=== PATIENT | male | born 1975 | race Native Hawaiian/Other Pacific Islander ===

== ENCOUNTER 2021-09-21 19:31 | Observation (INO) ==
[2021-09-21] MEDS ORDERED: ASPIRIN 325 MG TABLET PO STA (21:07)
[2021-09-21 21:13] LABS: Basophils % 0.4 % (0.0-0.8); Eosinophils % 0.2 % (0.00-10.9); Hematocrit 46.1 VOL% (42.0-52.0); Hemoglobin 15.3 GM/DL (14.0-18.0); Immature Granulocytes % 0.4 %; Immature Granulocytes Absolute 0.04 #; Lymphocytes % 21.1 % (21.2-54.2); Mean Corpuscular HGB Conc 33.2 GM/DL (32-36); Mean Corpuscular Volume 82.8 FL (87-102); Mean Platelet Volume 11.5 FL (9.6-12.0); Monocytes % 7.3 % (1.7-12.7); Neutrophils % 70.6 % (38.7-73.9); Platelet Count 323 T/CUMM (130-400); Red Blood Count 5.57 MC/CUMM (3.8-5.5); Red Cell Distribution Width 13.8 % (9.3-17.3); White Blood Count 9.5 T/CUMM (4-12)
[2021-09-21 21:26] LABS: Albumin 4.8 G/DL (3.4-5.0); Calcium 10.2 MG/DL (8.5-10.1); Osmolality,Calculated 275.7 MOS/KG (273-304); Potassium 3.7 MMOL/L (3.5-5.1); Total Protein 8.5 G/DL (6.4-8.2)
[2021-09-21] MEDS: NITROGLYCERIN SL 0.4 MG TABLET SL PRN ×2 (22:17→22:25)
[2021-09-21] MEDS ORDERED: ONDANSETRON 4 MG/2 ML VIAL IV PRN (22:46)
[2021-09-21] MEDS ORDERED: ZALEPLON 5 MG CAPSULE PO PRN (22:46)
[2021-09-21] MEDS ORDERED: MORPHINE 2 MG/1 ML SYRINGE IV PRN (22:46)
[2021-09-21] MEDS ORDERED: diphenhydrAMINE CAP 25 MG CAPSULE PO PRN (22:46)
[2021-09-21] MEDS ORDERED: NICOTINE 21 MG/24 HR PATCH TRANSDERM PRN (22:46)
[2021-09-21] MEDS ORDERED: guaiFENesin/DM ER 600-30 MG TABLET PO PRN (22:46)
[2021-09-21] MEDS ORDERED: ACETAMINOPHEN 325 MG TABLET PO PRN (22:46)
[2021-09-21] MEDS ORDERED: DEXTROSE 50% 25 GM/50 ML VIAL IV PRN (22:46)
[2021-09-21] MEDS ORDERED: GLUCAGON 1 MG VIAL IM PRN (22:46)
[2021-09-21] MEDS ORDERED: amLODIPine 5 MG TABLET PO STA (22:50)
[2021-09-21] MEDS ORDERED: DEXTROSE 5% NACL 0.9% 1,000 ML IV SCH (23:00)
[2021-09-22 01:42] LABS: Basophils % 0.4 % (0.0-0.8); Eosinophils % 0.4 % (0.00-10.9); Hematocrit 44.4 VOL% (42.0-52.0); Hemoglobin 15.3 GM/DL (14.0-18.0); Immature Granulocytes % 0.3 %; Immature Granulocytes Absolute 0.03 #; Lymphocytes # 2.5 10*3/uL (1.4-4.0); Lymphocytes % 26.2 % (21.2-54.2); Mean Corpuscular HGB Conc 34.5 GM/DL (32-36); Mean Corpuscular Volume 82.2 FL (87-102); Mean Platelet Volume 11.1 FL (9.6-12.0); Monocytes % 8.5 % (1.7-12.7); Neutrophils % 64.2 % (38.7-73.9); Platelet Count 298 T/CUMM (130-400); Red Cell Distribution Width 13.9 % (9.3-17.3); White Blood Count 9.7 T/CUMM (4-12)
[2021-09-22 02:03] LABS: Calcium 9.9 MG/DL (8.5-10.1); Osmolality,Calculated 274.8 MOS/KG (273-304); Potassium 3.6 MMOL/L (3.5-5.1)
[2021-09-22] MEDS ORDERED: lisinopriL 20 MG TABLET PO SCH (06:20)
[2021-09-22 08:53] VITALS: BP 154/93
[2021-09-22] MEDS ORDERED: ASPIRIN CHEW 81 MG TABLET PO SCH (09:00)
[2021-09-22] MEDS ORDERED: ENOXAPARIN 40 MG/0.4 ML SYRINGE SUBCUT SCH (09:00)
[2021-09-22] MEDS ORDERED: PANTOPRAZOLE 40 MG TABLET PO SCH (09:00)
[2021-09-22] MEDS ORDERED: amLODIPine 10 MG TABLET PO SCH (09:00)
[2021-09-22] MEDS ORDERED: CHLORTHALIDONE 25 MG TABLET PO SCH (10:00)
[2021-09-22 10:55] LABS: Risk Ratio 4.92; Thyroid Stimulating Hormone 1.21 uIU/ml (0.358-3.74); VLDL Cholesterol 66.2 MG/DL
== END 2021-09-22 13:00 | disposition home or self-care (01) ==
LOC: N.EDINP 19:31 → N.ED 19:31 → N.TELES 09-22 01:14
PROVIDERS: ADMIT Internal Medicine; ATTEND Internal Medicine